=== PATIENT | female | born 1995 | race Caucasian/White ===

== ENCOUNTER 2017-05-30 22:32 | Emergency (ER) | payer MEDICAID ==
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
[2017-05-30 22:59] LABS: ABSOLUTE EOSINOPHILS # (AUTO) 0.1 10^3/uL (0.0-0.6); ABSOLUTE LYMPHOCYTES (AUTO) 1.6 10^3/uL (0.5-4.7); ABSOLUTE MONOCYTES (AUTO) 0.5 10^3/uL (0.1-1.4); ABSOLUTE NEUT (AUTO) 4.4 10^3/uL (1.7-8.2); BASOPHILS % (AUTO) 0.4 % (0-2); EOSINOPHILS % (AUTO) 1.2 % (0-6); HEMATOCRIT 37.6 % (36.0-47.0); HEMOGLOBIN 12.8 g/dL (12.0-15.5); HGB HCT DIFFERENCE 0.8; LYMPHOCYTES % (AUTO) 24.5 % (13-45); MEAN CORPUSCULAR HEMOGLOBIN 30.3 pg (27.0-33.4); MEAN CORPUSCULAR VOLUME 89 fl (80-97); MONOCYTES % (AUTO) 7.1 % (3-13); RED BLOOD COUNT 4.23 10^6/uL (3.72-5.28); RED CELL DISTRIBUTION WIDTH 13.6 % (11.5-14.0); SEGMENTED NEUTROPHILS % (AUTO) 66.8 % (42-78); WHITE BLOOD COUNT 6.7 10^3/uL (4.0-10.5)
[2017-05-30 23:16] LABS: ALANINE AMINOTRANSFERASE 18 U/L (5-35); ALBUMIN 4.2 g/dL (3.7-5.6); ALKALINE PHOSPHATASE 43 U/L (50-135); ANION GAP 10 (5-19); ASPARTATE AMINO TRANSFERASE 13 U/L (5-30); BILIRUBIN,DIRECT 0.3 mg/dL (0.0-0.4); BILIRUBIN,TOTAL 0.4 mg/dL (0.2-1.3); BLOOD UREA NITROGEN 14 mg/dL (7-20); CALCIUM 9.2 mg/dL (8.4-10.2); CARBON DIOXIDE 25 mmol/L (22-30); CHLORIDE 107 mmol/L (98-107); CREATININE RESULT 0.81 mg/dL (0.52-1.25); GLUCOSE 88 mg/dL (75-110); POTASSIUM 3.8 mmol/L (3.6-5.0); SODIUM 142.3 mmol/L (137-145); TOTAL PROTEIN 6.7 g/dL (6.3-8.2)
[2017-05-30 23:17] LABS: ALCOHOL < 10 mg/dL (NONE DETECTED)
--- NOTE | 2017-05-30 23:42 | EKG REPORT ---
SEVERITY:- NORMAL ECG - SINUS RHYTHM : Confirmed by: Tolu Fleming MD 30-May-2017 23:41:33
[2017-05-31 01:35] LABS: APPEARANCE,URINE SLIGHTLY-CLOUDY; BILIRUBIN,URINE NEGATIVE (NEGATIVE); GLUCOSE, URINE NEGATIVE (NEGATIVE); KETONES,URINE NEGATIVE (NEGATIVE); LEUKOCYTE ESTERASE,URINE TRACE (NEGATIVE); NITRITE,URINE NEGATIVE (NEGATIVE); PROTEIN,URINE NEGATIVE (NEGATIVE); URINE SPECIFIC GRAVITY 1.015; UROBILINOGEN,URINE NEGATIVE mg/dL (<2.0)
[2017-05-31 01:52] LABS: URINE BARBITURATES SCREEN NEGATIVE; URINE METHADONE SCREEN NEGATIVE; URINE OPIATES LOW NEGATIVE; URINE PHENCYCLIDINE SCREEN NEGATIVE
--- NOTE | 2017-05-31 09:12 | ER Document Report ---
Doctor's Note Notes: 05/31/17 11:08 Patient has been evaluated is stable at this time awaiting mental health involvement, I have reviewed labs vitals
[2017-05-31] MEDS ORDERED: BUPROPION HCL 100 MG PO SCH (10:00)
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
[2017-05-31 13:21] VITALS: BP 116/65
[2017-05-31] MEDS ORDERED: BUPROPION HCL 75 MG TABLET PO SCH (14:00)
== END 2017-05-31 13:21 | disposition home or self-care (01) ==
LOC: ER 22:32
DX: T50.902A Poisoning by unspecified drugs, medicaments and biological substances, intentional self-harm, initial encounter (principal); F32.9 Major depressive disorder, single episode, unspecified; Z79.899 Other long term (current) drug therapy; F17.200 Nicotine dependence, unspecified, uncomplicated
CPT/HCPCS: 36415; 80053; 80307; 81001; 84703; 85025; 93005; 93010; 99285

== ENCOUNTER 2017-09-14 14:28 | Emergency (ER) | payer MEDICAID ==
--- NOTE | 2017-09-14 15:59 | ER Document Report ---
HPI - HPI Patient complains to provider of: Right ear pain Onset: Other - Several days Onset/Duration: Constant, Persistent Pain Level: 4 Context: 21-year-old female complaining of right ear pain. She also hurts pre-and posterior auricular. No fever. No recent upper respiratory infection. She also says she cannot hear very well out of the right ear. Associated Symptoms: None Exacerbated by: Denies Relieved by: Denies Similar symptoms previously: No Recently seen / treated by doctor: No - ROS ROS below otherwise negative: Yes Systems Reviewed and Negative: Yes All other systems reviewed and negative Past Medical History - General Information source: Patient - Social History Smoking Status: Current Every Day Smoker Frequency of alcohol use: None Drug Abuse: None Lives with: Family Family History: Reviewed & Not Pertinent Psychiatric Medical History: Reports: Hx Depression Past Surgical History: Reports: Hx Gynecologic Surgery - ovarian cyst removal, Hx Tonsillectomy Vertical Provider Document - CONSTITUTIONAL Agree With Documented VS: Yes Exam Limitations: No Limitations - INFECTION CONTROL TRAVEL OUTSIDE OF THE [place] IN LAST 30 DAYS: No - HEENT HEENT: Normocephalic. negative: Conjuctival Injection, Pharyngeal Erythema Notes: tender with external ear and tragus movement, mild swelling to canal, wax in canal but the TM Is normal no pre or posterior auricular nodes, mastoid normal - RESPIRATORY Respiratory: Breath Sounds Normal, No Respiratory Distress O2 Sat by Pulse Oximetry: 94 - CARDIOVASCULAR Cardiovascular: Regular Rate, Regular Rhythm - MUSCULOSKELETAL/EXTREMETIES Musculoskeletal/Extremeties: MAEW, FROM - NEURO Level of Consciousness: Awake, Alert, Appropriate - DERM Integumentary: Warm, Dry, No Rash Course - Vital Signs Vital signs: Temp Pulse Resp BP Pulse Ox 98.3 F 94 H 14 136/63 H 94 09/14/17 14:39 09/14/17 14:39 09/14/17 14:39 09/14/17 14:39 09/14/17 14:39 Discharge - Discharge Clinical Impression: Right otitis externa Qualifiers: Otitis externa type: unspecified type Chronicity: acute Qualified Code(s): H60.501 - Unspecified acute noninfective otitis externa, right ear Condition: Good Instructions: Use of Ear Drops ([facility]), Otitis Externa ([facility]), Acetaminophen, Use of [id number] Ibuprofen ([facility]), Warm Packs ([facility]) Additional Instructions: warm compress to er if worse antibiotic ear drops over the counter tylenol and motrin for pain Please complete the patient satisfaction survey if you get one, and return it.. If you do not receive a survey, then you can go to the [facility] website, [email or web address] and place your comments about your very good care. Thank you very much. It was a pleasure being your medical provider today. Prescriptions: Gentamicin Sulfate 2 drop OD QID #1 bot Forms: Return to Work
[2017-09-14 16:43] VITALS: BP 115/66
== END 2017-09-14 16:47 | disposition home or self-care (01) ==
LOC: ER 14:28
DX: H60.501 Unspecified acute noninfective otitis externa, right ear (principal); F17.200 Nicotine dependence, unspecified, uncomplicated
CPT/HCPCS: 99282

== ENCOUNTER 2017-10-06 13:20 | Emergency (ER) | payer MEDICAID ==
[2017-10-06 13:27] VITALS: BP 113/68
--- NOTE | 2017-10-06 13:40 | ER Document Report ---
ED Medical Screen (RME) - General Chief Complaint: Abdominal Pain Stated Complaint: ABDOMINAL PAIN Time Seen by Provider: 10/06/17 13:36 Notes: 21-year-old female patient reports onset this morning of right lower quadrant abdominal pain. Pain is constant. LMP was in late July or early August. She has not done a test. She reports the pain is similar to a dermoid cyst she had removed at age [age] years old. I have greeted and performed a rapid initial assessment of this patient. A comprehensive ED assessment and evaluation of the patient, analysis of test results and completion of the medical decision making process will be conducted by additional ED providers. TRAVEL OUTSIDE OF THE [place] IN LAST 30 DAYS: No - Related Data Allergies/Adverse Reactions: No Known Allergies Allergy (Verified 10/06/17 13:36) Past Medical History - Social History Chew tobacco use (# tins/day): No Frequency of alcohol use: None Drug Abuse: None Renal/ Medical History: Denies: Hx Peritoneal Dialysis Psychiatric Medical History: Reports: Hx Depression Past Surgical History: Reports: Hx Gynecologic Surgery - ovarian cyst removal, Hx Tonsillectomy Physical Exam - Vital signs Vitals: Temp Pulse Resp BP Pulse Ox 98.5 F 78 16 113/68 98 10/06/17 13:26 10/06/17 13:26 10/06/17 13:26 10/06/17 13:26 10/06/17 13:26 Course - Vital Signs Vital signs: Temp Pulse Resp BP Pulse Ox 98.5 F 78 16 113/68 98 10/06/17 13:26 10/06/17 13:26 10/06/17 13:26 10/06/17 13:26 10/06/17 13:26
[2017-10-06 14:04] LABS: ABSOLUTE EOSINOPHILS # (AUTO) 0.2 10^3/uL (0.0-0.6); ABSOLUTE LYMPHOCYTES (AUTO) 2.3 10^3/uL (0.5-4.7); ABSOLUTE MONOCYTES (AUTO) 0.5 10^3/uL (0.1-1.4); ABSOLUTE NEUT (AUTO) 4.5 10^3/uL (1.7-8.2); BASOPHILS % (AUTO) 0.5 % (0-2); EOSINOPHILS % (AUTO) 2.6 % (0-6); LYMPHOCYTES % (AUTO) 30.4 % (13-45); MEAN CORPUSCULAR HEMOGLOBIN 29.6 pg (27.0-33.4); MEAN CORPUSCULAR HGB CONC 34.2 g/dL (32.0-36.0); MEAN CORPUSCULAR VOLUME 87 fl (80-97); MONOCYTES % (AUTO) 6.4 % (3-13); RED BLOOD COUNT 4.72 10^6/uL (3.72-5.28); RED CELL DISTRIBUTION WIDTH 13.7 % (11.5-14.0); SEGMENTED NEUTROPHILS % (AUTO) 60.1 % (42-78); WHITE BLOOD COUNT 7.5 10^3/uL (4.0-10.5)
[2017-10-06 14:10] LABS: APPEARANCE,URINE CLEAR; BILIRUBIN,URINE NEGATIVE (NEGATIVE); GLUCOSE, URINE NEGATIVE (NEGATIVE); KETONES,URINE NEGATIVE (NEGATIVE); LEUKOCYTE ESTERASE,URINE NEGATIVE (NEGATIVE); NITRITE,URINE NEGATIVE (NEGATIVE); PROTEIN,URINE NEGATIVE (NEGATIVE); URINE SPECIFIC GRAVITY 1.015; UROBILINOGEN,URINE NEGATIVE mg/dL (<2.0)
== END 2017-10-06 19:21 | disposition left against medical advice (07) ==
LOC: ER 13:20
DX: R10.31 Right lower quadrant pain (principal); Z87.42 Personal history of other diseases of the female genital tract
CPT/HCPCS: 36415; 81001; 84703; 85025; 99281

== ENCOUNTER 2018-02-17 12:43 | Emergency (ER) | payer MEDICAID ==
[2018-02-17 12:53] VITALS: BP 113/58
== END 2018-02-17 13:55 | disposition left against medical advice (07) ==
LOC: ER 12:43
DX: Z53.21 Procedure and treatment not carried out due to patient leaving prior to being seen by health care provider (principal)

== ENCOUNTER 2018-04-06 19:52 | Emergency (ER) | payer MEDICAID ==
[2018-04-06] MEDS ORDERED: ONDANSETRON 4 MG TAB.RAPDIS ONE (21:12)
[2018-04-06] MEDS ORDERED: ONDANSETRON 4 MG TAB.RAPDIS PO ONE (21:17)
[2018-04-06 21:30] LABS: ABSOLUTE EOSINOPHILS # (AUTO) 0.4 10^3/uL (0.0-0.6); ABSOLUTE LYMPHOCYTES (AUTO) 1.4 10^3/uL (0.5-4.7); ABSOLUTE MONOCYTES (AUTO) 0.6 10^3/uL (0.1-1.4); ABSOLUTE NEUT (AUTO) 9.7 10^3/uL (1.7-8.2); BASOPHILS % (AUTO) 0.3 % (0-2); HEMATOCRIT 41.6 % (36.0-47.0); HEMOGLOBIN 14.2 g/dL (12.0-15.5); LYMPHOCYTES % (AUTO) 11.9 % (13-45); MEAN CORPUSCULAR HEMOGLOBIN 29.6 pg (27.0-33.4); MEAN CORPUSCULAR HGB CONC 34.2 g/dL (32.0-36.0); MEAN CORPUSCULAR VOLUME 87 fl (80-97); MONOCYTES % (AUTO) 5.1 % (3-13); PLATELET COUNT 278 10^3/uL (150-450); RED BLOOD COUNT 4.81 10^6/uL (3.72-5.28); RED CELL DISTRIBUTION WIDTH 13.4 % (11.5-14.0); SEGMENTED NEUTROPHILS % (AUTO) 79.7 % (42-78); TOTAL CELLS COUNTED % (AUTO) 100 %; WHITE BLOOD COUNT 12.2 10^3/uL (4.0-10.5)
[2018-04-06 21:46] LABS: AMORPHOUS SEDIMENT,URINE TRACE /HPF; APPEARANCE,URINE TURBID; BILIRUBIN,URINE NEGATIVE (NEGATIVE); COLOR,URINE YELLOW; GLUCOSE, URINE NEGATIVE (NEGATIVE); KETONES,URINE TRACE mg/dL (NEGATIVE); LEUKOCYTE ESTERASE,URINE NEGATIVE (NEGATIVE); NITRITE,URINE NEGATIVE (NEGATIVE); PROTEIN,URINE 30 mg/dL (NEGATIVE); URINE SPECIFIC GRAVITY 1.034
[2018-04-06] MEDS ORDERED: FENTANYL CITRATE INJ/PF 100 MCG/2 ML AMPUL IV ONE (22:09)
[2018-04-06] MEDS ORDERED: NORMAL SALINE 1000 ML 1,000 ML IV ONE (22:09)
[2018-04-06] MEDS ORDERED: PROMETHAZINE HCL INJ 25 MG/1 ML VIAL IM ONE (22:09)
[2018-04-06 22:12] LABS: ALANINE AMINOTRANSFERASE 25 U/L (9-52); ALBUMIN 4.6 g/dL (3.5-5.0); ALKALINE PHOSPHATASE 61 U/L (38-126); ANION GAP 14 (5-19); ASPARTATE AMINO TRANSFERASE 21 U/L (14-36); BILIRUBIN,DIRECT 0.3 mg/dL (0.0-0.4); BILIRUBIN,TOTAL 0.3 mg/dL (0.2-1.3); BLOOD UREA NITROGEN 14 mg/dL (7-20); CARBON DIOXIDE 26 mmol/L (22-30); CHLORIDE 104 mmol/L (98-107); GLUCOSE 99 mg/dL (75-110); POTASSIUM 4.2 mmol/L (3.6-5.0); SODIUM 143.5 mmol/L (137-145); TOTAL PROTEIN 7.7 g/dL (6.3-8.2)
--- NOTE | 2018-04-06 22:15 | ER Document Report ---
ED General - General Chief Complaint: Abdominal Pain Stated Complaint: ABDOMINAL PAIN Time Seen by Provider: 04/06/18 22:00 Notes: Patient is a 22-year-old female who presents with complaints of abdominal pain and vomiting is been ongoing since yesterday. States the upper part of her abdomen hurts. She has had recurrent vomiting. No diarrhea. No blood in her stool. Is been unable to hold down food. No history of this in the past. The only previous abdominal history she has some endometriosis but says this feels totally different. No dysuria. No abnormal vaginal discharge or bleeding. No fevers. She says she does not know if she has pain with eating because she says she is unable to even attempt to hold anything down. No other complaints at this time. TRAVEL OUTSIDE OF THE [place] IN LAST 30 DAYS: No - Related Data Allergies/Adverse Reactions: No Known Allergies Allergy (Verified 02/17/18 12:46) Past Medical History - Social History Smoking Status: Current Every Day Smoker Frequency of alcohol use: None Drug Abuse: None Family History: Reviewed & Not Pertinent Renal/ Medical History: Denies: Hx Peritoneal Dialysis Psychiatric Medical History: Reports: Hx Depression Past Surgical History: Reports: Hx Gynecologic Surgery - ovarian cyst removal, Hx Tonsillectomy Review of Systems - Review of Systems Notes: My Normal Review Basic REVIEW OF SYSTEMS: CONSTITUTIONAL : Denies fever, chills, or sweats. Denies recent illness. CARDIOVASCULAR: Denies chest pain. RESPIRATORY: Denies cough, cold, or chest congestion. Denies shortness of breath, difficulty breathing, or wheezing. GASTROINTESTINAL: Abdominal pain and vomiting. GENITOURINARY: Denies difficulty urinating, painful urination, burning, frequency, or blood in urine. FEMALE GENITOURINARY: Denies vaginal bleeding, abnormal or irregular periods. LMP: MUSCULOSKELETAL: Denies neck or back pain or joint pain or swelling. SKIN: Denies rash or skin lesions. NEUROLOGICAL: Denies altered mental status or loss of consciousness. Denies headache. Denies weakness or paralysis or loss of use of either side. Denies problems with gait or speech. Denies sensory or motor loss. ALL OTHER SYSTEMS REVIEWED AND NEGATIVE. Physical Exam - Vital signs Vitals: Temp Pulse Resp BP Pulse Ox 98.8 F 94 20 124/76 97 04/06/18 20:02 04/06/18 20:02 04/06/18 20:02 04/06/18 20:02 04/06/18 20:02 - Notes Notes: General Appearance: Well nourished, alert, cooperative, no acute distress, moderate obvious discomfort. Vitals: reviewed, See vital signs table. Head: no swelling or tenderness to the head Eyes: PERRL, EOMI, Conjuctiva clear Mouth: No decreasd moisture Throat: No tonsillar inflammation, No airway obstruction, No lymphadenopathy Lungs: No wheezing, No rales, No rhonci, No accessory muscle use, good air exchange bilaterally. Heart: Normal rate, Regular rythm, No murmur, no rub Abdomen: Normal BS, soft, No rigidity, moderate diffuse abdominal tenderness that is worse over the epigastric region., No guarding, no rebound, no abdominal masses, no organomegaly Extremities: strength 5/5 in all extremities, good pulses in all extremities, no swelling or tenderness in the extremities, no edema. Skin: warm, dry, appropriate color, no rash Neuro: speech clear, oriented x 3, normal affect, responds appropriately to questions. Course - Re-evaluation Re-evalutation: 04/06/18 23:06 On reevaluation patient is sleeping. I wake up ask her how she is penis and she will wake her up she says that she is just doing "a little bit better". She still has pain palpation of her upper abdomen. Will obtain ultrasound to look at her gallbladder. She has not had any further vomiting. 04/07/18 04:26 Patient's pain and nausea continues to improve. Some mild generalized pain on exam however when you ask to locate her pain she was pointed to the epigastric region. I did obtain ultrasound of gallbladder just because she was continued complaint of pain. Ultrasound gallbladder did not show anything concerning. He did show very small polyp no that is does not require scheduled follow-up at this time according to the radiologist read. I did look at the images I do not see any polyp or mass in the neck of the gallbladder itself be concerning for biliary obstruction. Patient's laboratory evaluation is unremarkable. She is improving. I did discuss findings with the patient. Her mother was at bedside on my final evaluation the patient. Mother does mention that patient has a history of dermoid cyst on the left however patient does not have significant pain over the left lower quadrant left pelvic region. I informed her I think is unlikely that the cyst would be causing the pain. I do not suspect torsion as the patient does not have any pain over the portion of the abdomen where her ovaries Y. This summer the patient safe to be discharged home. Discharge her home with some nausea medications. I strongly encouraged her return to ER immediately if she has worsening recurrent pain, fevers, intractable vomiting, or feels unwell. Patient and family agree with plan and patient will be discharged home. Dictation of this chart was performed using voice recognition software; therefore, there may be some unintended grammatical errors. - Vital Signs Vital signs: Temp Pulse Resp BP Pulse Ox 98.6 F 75 16 123/65 98 04/07/18 01:20 04/07/18 01:20 04/07/18 01:20 04/07/18 01:20 04/07/18 01:20 - Laboratory Result Diagrams: 04/06/18 21:12 04/06/18 21:12 Laboratory results interpreted by me: 04/06/18 04/06/18 21:12 21:12 WBC 12.2 H Seg Neutrophils % 79.7 H Lymphocytes % 11.9 L Absolute Neutrophils 9.7 H Urine Protein 30 H Urine Ketones TRACE H Urine Urobilinogen 2.0 H Urine Ascorbic Acid 40 H Discharge - Discharge Clinical Impression: Abdominal pain Qualifiers: Abdominal location: upper abdomen, unspecified Qualified Code(s): R10.10 - Upper abdominal pain, unspecified Vomiting Qualifiers: Vomiting type: unspecified Vomiting Intractability: non-intractable Nausea presence: with nausea Qualified Code(s): R11.2 - Nausea with vomiting, unspecified Condition: Good Disposition: HOME, SELF-CARE Additional Instructions: PLease take the medications as prescribed. please take Tylenol for additional pain. Please avoid Motrin, aspirin, and Ibuprofen as they can irritate your stomach more. Please return to ER immediately if you have worsening abdominal pain, fevers, recurrent vomiting, or if you feel unwell. Please follow up with your doctor in 1-2 days. Please eat a very bland diet for the next 2-3 days. Prescriptions: Famotidine [Pepcid 40 mg Tablet] 40 mg PO DAILY #30 tablet Promethazine HCl [Phenergan 25 mg Tablet] 1 tab PO Q6H PRN #15 tablet PRN Reason: Forms: Return to Work
--- NOTE | 2018-04-07 00:12 | RADIOLOGY REPORT (SQ) ---
EXAM DESCRIPTION: US ABDOMEN DOPPLER LIMITED COMPLETED DATE/TME: 04/06/2018 23:06 CLINICAL HISTORY: abdominal pain. RUQ. COMPARISON: None. TECHNIQUE: Real-time sonographic images of the right upper abdomen were obtained using a curved multihertz transducer. FINDINGS: Pancreas: The pancreas is not well evaluated due to overlying structures and bowel gas. Vascular: The visualized portions of the aorta and IVC are unremarkable. Liver: The liver has normal contour and echogenicity. The left hepatic lobe is not well-visualized due to overlying structures. Hepatopedal flow in the portal vein identified with color and spectral Doppler imaging. The common bile duct measures 0.3 cm. Gallbladder: There is a 0.2 cm nonmobile nonshadowing structure along the gallbladder wall. No gallbladder wall thickening. Negative reported sonographic Paris sign. No pericholecystic fluid. Right Kidney: The right kidney measures 12.1 cm in length. No hydronephrosis, solid renal mass, or shadowing calculi. IMPRESSION: 1. There is a 0.2 cm nonmobile nonshadowing structure along the gallbladder wall. This may represent a polyp or adherent sludge ball. No follow-up required for this size of polyp.
[2018-04-07] MEDS ORDERED: PROMETHAZINE HCL 25 MG SUPP (4 SUPP/ER DISP) PR ONE (00:36)
[2018-04-07 01:28] VITALS: BP 123/65
== END 2018-04-07 01:19 | disposition home or self-care (01) ==
LOC: ER 19:52
DX: R10.10 Upper abdominal pain, unspecified (principal); R11.2 Nausea with vomiting, unspecified; F17.200 Nicotine dependence, unspecified, uncomplicated
CPT/HCPCS: 99284; 96372; 96361; 96374; 36415; 83690; 85025; 81025; 80053; 81001; 76705; 93976; S0119; J3010; J3490; J2550; J7030

== ENCOUNTER 2018-08-31 12:57 | Emergency (ER) | payer MEDICAID ==
--- NOTE | 2018-08-31 14:05 | RADIOLOGY REPORT (SQ) ---
EXAM DESCRIPTION: HAND RIGHT 3 VIEWS COMPLETED DATE/TIME: 08/31/2018 1:57 pm REASON FOR STUDY: pain to knuckle little finger , swollen red COMPARISON: None. EXAM PARAMETERS: NUMBER OF VIEWS: Three views. TECHNIQUE: AP, lateral and oblique radiographic images acquired of the right hand. LIMITATIONS: None. FINDINGS: MINERALIZATION: Normal. BONES: No acute fracture or dislocation. No worrisome bone lesions. JOINTS: No effusions. SOFT TISSUES: No soft tissue swelling. No foreign body. OTHER: No other significant finding. IMPRESSION: NEGATIVE STUDY OF THE RIGHT HAND. NO RADIOGRAPHIC EVIDENCE OF ACUTE INJURY. TECHNICAL DOCUMENTATION: JOB ID: [id number]- All Rights Reserved Reading location - IP/workstation name: [email or web address]
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
[2018-08-31] MEDS ORDERED: IBUPROFEN 600 MG TABLET PO ONE (14:29)
[2018-08-31] MEDS ORDERED: DIPH/PERTUSS(ACELL)/TETANUS VAC/PF 0.5 ML SYR (>=10YO) IM ONE (14:32)
[2018-08-31 15:46] VITALS: BP 113/68
== END 2018-08-31 15:29 | disposition home or self-care (01) ==
LOC: ER 12:57
PROC: 2W3JX1Z Immobilization of Right Finger using Splint (ICD-10-PCS; principal; 2018-08-31)
DX: S63.636A Sprain of interphalangeal joint of right little finger, initial encounter (principal); X50.1XXA Overexertion from prolonged static or awkward postures, initial encounter
CPT/HCPCS: 99284; 90471; 73130; 90715; 29130; J3490

== ENCOUNTER 2018-12-09 12:59 | Emergency (ER) | payer MEDICAID ==
[2018-12-09] MEDS ORDERED: KETOROLAC TROMETHAMINE INJ/PF 30 MG/1 ML SDV IV ONE (13:28)
[2018-12-09] MEDS ORDERED: ONDANSETRON HCL INJ/PF 4 MG/2 ML SDV IV ONE (13:28)
[2018-12-09] MEDS ORDERED: DICYCLOMINE HCL INJ 20 MG/2 ML AMPULE IM ONE (13:29)
--- NOTE | 2018-12-09 13:30 | ER Document Report ---
ED Medical Screen (RME) - General Chief Complaint: Nausea/Vomiting/Diarrhea Stated Complaint: ABDOMINAL PAIN Time Seen by Provider: 12/09/18 13:24 Notes: Chief complaint: Abdominal pain History of complain:( obtained from----patient) 23 years old female presents today with diffuse abdominal pain and vomited about 4-5 times clear fluid. And also had brown stool today. X1. No fever chills no dysuria frequency urgency. PHYSICAL EXAMINATION: GENERAL: Well-appearing, well-nourished and in mild acute distress. Obese HEAD: Atraumatic, normocephalic. EYES: Pupils equal round and reactive to light, extraocular movements intact, c onjunctiva are normal. ENT: Nares patent, oropharynx clear without exudates. Moist mucous membranes. NECK: Normal range of motion, supple without lymphadenopathy LUNGS: Breath sounds clear to auscultation bilaterally and equal. No wheezes rales or rhonchi. HEART: Regular rate and rhythm without murmurs ABDOMEN: Soft, diffusely tender, nondistended abdomen. No guarding, no rebound. No masses appreciated. Examination of genitals-deferred Dictation was performed using [employer] voice recognition software TRAVEL OUTSIDE OF THE [place] IN LAST 30 DAYS: No - Related Data Allergies/Adverse Reactions: No Known Allergies Allergy (Verified 12/09/18 12:59) Past Medical History Renal/ Medical History: Denies: Hx Peritoneal Dialysis Psychiatric Medical History: Reports: Hx Depression Past Surgical History: Reports: Hx Gynecologic Surgery - ovarian cyst removal, Hx Tonsillectomy Physical Exam - Vital signs Vitals: Temp Pulse Resp BP Pulse Ox 98.0 F 97 17 135/69 H 94 12/09/18 13:07 12/09/18 13:07 12/09/18 13:07 12/09/18 13:07 12/09/18 13:07 Course - Vital Signs Vital signs: Temp Pulse Resp BP Pulse Ox 98.0 F 97 17 135/69 H 94 12/09/18 13:07 12/09/18 13:07 12/09/18 13:07 12/09/18 13:07 12/09/18 13:07
[2018-12-09 14:39] LABS: APPEARANCE,URINE CLOUDY; BILIRUBIN,URINE NEGATIVE (NEGATIVE); COLOR,URINE YELLOW; GLUCOSE, URINE NEGATIVE (NEGATIVE); KETONES,URINE NEGATIVE (NEGATIVE); LEUKOCYTE ESTERASE,URINE NEGATIVE (NEGATIVE); NITRITE,URINE NEGATIVE (NEGATIVE); PROTEIN,URINE 30 mg/dL (NEGATIVE)
--- NOTE | 2018-12-09 14:55 | ER Document Report ---
ED GI/ - General Chief Complaint: Nausea/Vomiting/Diarrhea Stated Complaint: ABDOMINAL PAIN Time Seen by Provider: 12/09/18 13:24 Mode of Arrival: Ambulatory Information source: Patient Notes: Patient is an otherwise healthy 23-year-old female presenting to the emergency department with complaints of abdominal pain, nausea, vomiting and diarrhea. Patient reports her symptoms started 5 days ago. She reports over the last 5 days she has vomited approximately 6 times but has severe nausea constantly. Patient denies any dysuria but reports frequency. Patient is unsure if she was , last menstrual period was 4 months ago however she reports having irregular periods. Patient denies any fever or chills. Denies any abnormal discharge however she does state that the volume of discharge has increased. Denies any foul smell. Past surgical history includes left ovarian cyst re moval. TRAVEL OUTSIDE OF THE [place] IN LAST 30 DAYS: No - Related Data Allergies/Adverse Reactions: No Known Allergies Allergy (Verified 12/09/18 12:59) Past Medical History - General Information source: Patient - Social History Smoking Status: Current Every Day Smoker Chew tobacco use (# tins/day): No Frequency of alcohol use: None Drug Abuse: None Family History: Reviewed & Not Pertinent Patient has suicidal ideation: No Patient has homicidal ideation: No Renal/ Medical History: Denies: Hx Peritoneal Dialysis Psychiatric Medical History: Reports: Hx Depression Past Surgical History: Reports: Hx Gynecologic Surgery - ovarian cyst removal, Hx Tonsillectomy Review of Systems - Review of Systems Constitutional: No symptoms reported EENT: No symptoms reported Cardiovascular: No symptoms reported Respiratory: No symptoms reported Gastrointestinal: Diarrhea, Nausea, Vomiting Genitourinary: Frequency Female Genitourinary: Vaginal discharge Musculoskeletal: No symptoms reported Skin: No symptoms reported Hematologic/Lymphatic: No symptoms reported Neurological/Psychological: No symptoms reported Physical Exam - Vital signs Vitals: Temp Pulse Resp BP Pulse Ox 98.0 F 97 17 135/69 H 94 12/09/18 13:07 12/09/18 13:07 12/09/18 13:07 12/09/18 13:07 12/09/18 13:07 - Notes Notes: PHYSICAL EXAMINATION: GENERAL: Well-appearing, well-nourished and in no acute distress. HEAD: Atraumatic, normocephalic. EYES: Pupils equal round and reactive to light, extraocular movements intact, conjunctiva are normal. ENT: Nares patent, oropharynx clear without exudates. Moist mucous membranes. NECK: Normal range of motion, supple without lymphadenopathy LUNGS: Breath sounds clear to auscultation bilaterally and equal. No wheezes rales or rhonchi. HEART: Regular rate and rhythm without murmurs ABDOMEN: Soft,nondistended abdomen. Mild tenderness to palpation to lower abdomen. No guarding, no rebound. No masses appreciated. Female : No CVA tenderness. Musculoskeletal: Normal range of motion, no pitting or edema. No cyanosis. NEUROLOGICAL: Cranial nerves grossly intact. Normal speech, normal gait. Normal sensory, motor exams PSYCH: Normal mood, normal affect. SKIN: Warm, Dry, normal turgor, no rashes or lesions noted. Course - Re-evaluation Re-evalutation: CBC, CMP and urinalysis are unremarkable. HCG is negative. 4+ bacteria was noted on the wet mount. Patient will be treated for bacterial vaginosis. Nausea, vomiting and diarrhea likely secondary to viral gastroenteritis. Patient has not had any episodes of emesis while in the emergency department. Patient will be dispensed Zofran. Patient given strict ED return precautions which were discussed in her discharge instructions. - Vital Signs Vital signs: Temp Pulse Resp BP Pulse Ox 98.1 F 60 16 106/56 L 100 12/09/18 16:56 12/09/18 16:56 12/09/18 16:56 12/09/18 16:56 12/09/18 16:56 - Laboratory Result Diagrams: 12/09/18 15:50 12/09/18 15:50 Laboratory results interpreted by me: 12/09/18 12/09/18 14:14 15:50 Chloride 108 H Urine Protein 30 H Urine Urobilinogen 4.0 H Discharge - Discharge Clinical Impression: BV (bacterial vaginosis) Condition: Stable Disposition: HOME, SELF-CARE Additional Instructions: Vaginosis, Bacterial Your exam shows you have bacterial vaginosis. This condition is due to an overgrowth of bacteria in the vagina. Symptoms may include vaginal itching or pain, a smelly discharge, and sometimes burning with urination. Normally this is not transmitted by sexual contact. Vaginosis can be treated with oral or topical antibiotics. Metronidazole ( Flagyl) pills are usually effective. Topical vaginal creams include Cleocin and Metro-Gel. You should avoid sexual contact until your symptoms are all better. Call the doctor if you develop pelvic pain, fever, or problems with urination, or if you don't improve as expected. Your workup today shows that you went over growth of bacteria in your vagina called bacterial vaginosis. Will take Flagyl twice daily for 7 days. Please do not drink any alcohol while taking this medication as it will make you very ill. Your blood work today was normal. Your test was negative. Is imp ortant that you set up a follow-up with an [employer]. I have given you list. Prescriptions: Metronidazole [Flagyl 500 mg Tablet] 500 mg PO BID #14 tablet Ondansetron [Zofran Odt 4 mg Tablet] 1 - 2 tab PO Q4H PRN #15 tab.rapdis PRN Reason: For Nausea/Vomiting Forms: Return to Work
--- NOTE | 2018-12-09 15:26 | RADIOLOGY REPORT (SQ) ---
EXAM DESCRIPTION: ACUTE ABDOMEN SERIES COMPLETED DATE/TIME: 12/09/2018 3:03 pm REASON FOR STUDY: Acute abdominal pain COMPARISON: Abdominal ultrasound 04/06/2018 AP chest 07/02/2016 NUMBER OF VIEWS: Three views. TECHNIQUE: Frontal chest, supine abdomen and upright/decubitus abdomen radiographic images acquired. LIMITATIONS: None. FINDINGS: CHEST: Lungs clear of infiltrates. FREE AIR: None. No abnormal gas collections. BOWEL GAS PATTERN: Nonobstructive pattern. No dilated loops or air fluid levels. CALCIFICATIONS: No suspicious calcifications. HARDWARE: None in the abdomen. SOFT TISSUES: No gross mass or suggestion of organomegaly. BONES: No acute fracture. No worrisome bone lesions. OTHER: No other significant finding. IMPRESSION: NO RADIOGRAPHIC EVIDENCE FOR ACUTE ABDOMINAL DISEASE. TECHNICAL DOCUMENTATION: JOB ID: [id number]- All Rights Reserved Reading location - IP/workstation name: [email or web address]
[2018-12-09 15:47] LABS: T.VAGINALIS (WET MOUNT) NO TRICHOMONAS SEEN; YEAST (WET MOUNT) NO YEAST SEEN
[2018-12-09 15:48] LABS: BACTERIA (WET MOUNT) 4+ BACTERIA SEEN; EPITHELIALS (WET MOUNT) 4+ EPITHELIALS SEEN; RBCS (WET MOUNT) NO RBCS SEEN; WBCS (WET MOUNT) 2+ WBCS SEEN
[2018-12-09 15:59] LABS: ABSOLUTE EOSINOPHILS # (AUTO) 0.1 10^3/uL (0.0-0.6); ABSOLUTE LYMPHOCYTES (AUTO) 1.3 10^3/uL (0.5-4.7); ABSOLUTE MONOCYTES (AUTO) 0.5 10^3/uL (0.1-1.4); ABSOLUTE NEUT (AUTO) 3.2 10^3/uL (1.7-8.2); BASOPHILS % (AUTO) 0.3 % (0-2); EOSINOPHILS % (AUTO) 1.8 % (0-6); HEMATOCRIT 38.4 % (36.0-47.0); HEMOGLOBIN 13.3 g/dL (12.0-15.5); LYMPHOCYTES % (AUTO) 25.3 % (13-45); MEAN CORPUSCULAR HEMOGLOBIN 29.9 pg (27.0-33.4); MEAN CORPUSCULAR HGB CONC 34.7 g/dL (32.0-36.0); MEAN CORPUSCULAR VOLUME 86 fl (80-97); MONOCYTES % (AUTO) 9.1 % (3-13); PLATELET COUNT 226 10^3/uL (150-450); RED BLOOD COUNT 4.45 10^6/uL (3.72-5.28); RED CELL DISTRIBUTION WIDTH 13.6 % (11.5-14.0); SEGMENTED NEUTROPHILS % (AUTO) 63.5 % (42-78); TOTAL CELLS COUNTED % (AUTO) 100 %; WHITE BLOOD COUNT 5.1 10^3/uL (4.0-10.5)
[2018-12-09 16:24] LABS: ALANINE AMINOTRANSFERASE 20 U/L (9-52); ALBUMIN 4.3 g/dL (3.5-5.0); ALKALINE PHOSPHATASE 52 U/L (38-126); ANION GAP 8 (5-19); ASPARTATE AMINO TRANSFERASE 25 U/L (14-36); BILIRUBIN,DIRECT 0.3 mg/dL (0.0-0.4); BILIRUBIN,TOTAL 0.5 mg/dL (0.2-1.3); BLOOD UREA NITROGEN 12 mg/dL (7-20); CARBON DIOXIDE 26 mmol/L (22-30); CHLORIDE 108 mmol/L (98-107); GLUCOSE 83 mg/dL (75-110); LIPASE 37.4 U/L (23-300); POTASSIUM 4.2 mmol/L (3.6-5.0); SODIUM 142.4 mmol/L (137-145); TOTAL PROTEIN 6.7 g/dL (6.3-8.2)
[2018-12-09] MEDS ORDERED: METRONIDAZOLE 500 MG TABLET PO ONE (16:46)
[2018-12-09 16:58] VITALS: BP 106/56
[2018-12-09 17:18] LABS: CHLAM PCR NOT DETECTED (NOT DETECT); GON PCR NOT DETECTED (NOT DETECT)
== END 2018-12-09 17:00 | disposition home or self-care (01) ==
LOC: ER 12:59
DX: N76.0 Acute vaginitis (principal); B96.89 Other specified bacterial agents as the cause of diseases classified elsewhere; R11.2 Nausea with vomiting, unspecified; R19.7 Diarrhea, unspecified; R10.9 Unspecified abdominal pain; N92.6 Irregular menstruation, unspecified; R35.0 Frequency of micturition; F17.200 Nicotine dependence, unspecified, uncomplicated; Z87.42 Personal history of other diseases of the female genital tract
CPT/HCPCS: 99284; 96372; 96374; 96375; 36415; 87210; 84702; 83690; 85025; 81025; 80053; 81001; 87491; 87591; 74022; J0500; J1885; J2405; J3490

== ENCOUNTER 2019-02-07 17:44 | Emergency (ER) | payer MEDICAID ==
[2019-02-07] MEDS ORDERED: ACETAMINOPHEN 325 MG TABLET PO ONE (18:51)
--- NOTE | 2019-02-07 18:53 | ER Document Report ---
ED Medical Screen (RME) - General Chief Complaint: Vag Bleeding, +preg <12wks Stated Complaint: ABDOMINAL PAIN, VAGINAL BLEEDING Time Seen by Provider: 02/07/19 18:45 Mode of Arrival: Ambulatory Information source: Patient TRAVEL OUTSIDE OF THE [place] IN LAST 30 DAYS: No - HPI Patient complains to provider of: preg, pain, bleeding Notes: 02/07/19 18:52 Patient is here with complaints of lower pelvic pain, bleeding and cramping. The patient is 11 weeks . She states that she has had an ultrasound confirming intrauterine . States that she started having some lower abdominal cramping and vaginal bleeding/spotting around 2 AM. She still having some mild pain. She also complains of some mild dysuria. She denies any nausea, vomiting, diarrhea. No fever. No other complaints. Exam Patient is nontoxic-appearing, no distress, lungs clear, no CVA tenderness. Mild left lower abdominal/pelvic tenderness to palpation. Plan CBC, CMP, quantitative hCG, blood type, urinalysis, pelvic ultrasound An initial examination was made on the patient as part of the triage process, and it was determined a more comprehensive evaluation was necessary. Initial labs were ordered and patient was transferred to another provider in the ED who assumed care and finished evaluation and plan. - Related Data Allergies/Adverse Reactions: No Known Allergies Allergy (Verified 02/07/19 17:46) Past Medical History - Social History Frequency of alcohol use: None Drug Abuse: None Renal/ Medical History: Denies: Hx Peritoneal Dialysis Psychiatric Medical History: Reports: Hx Depression Past Surgical History: Reports: Hx Gynecologic Surgery - ovarian cyst removal, Hx Tonsillectomy Physical Exam - Vital signs Vitals: Temp Pulse Resp BP Pulse Ox 98.6 F 77 16 125/53 L 99 02/07/19 18:00 02/07/19 18:00 02/07/19 18:00 02/07/19 18:00 02/07/19 18:00 Course - Vital Signs Vital signs: Temp Pulse Resp BP Pulse Ox 98.6 F 77 16 125/53 L 99 02/07/19 18:00 02/07/19 18:00 02/07/19 18:00 02/07/19 18:00 02/07/19 18:00
[2019-02-07 19:02] LABS: APPEARANCE,URINE CLEAR; BILIRUBIN,URINE NEGATIVE (NEGATIVE); COLOR,URINE YELLOW; GLUCOSE, URINE NEGATIVE (NEGATIVE); KETONES,URINE NEGATIVE (NEGATIVE); LEUKOCYTE ESTERASE,URINE NEGATIVE (NEGATIVE); NITRITE,URINE NEGATIVE (NEGATIVE); PROTEIN,URINE NEGATIVE (NEGATIVE); URINE SPECIFIC GRAVITY 1.021; UROBILINOGEN,URINE NEGATIVE mg/dL (<2.0)
[2019-02-07 19:12] LABS: ABSOLUTE EOSINOPHILS # (AUTO) 0.1 10^3/uL (0.0-0.6); ABSOLUTE LYMPHOCYTES (AUTO) 1.9 10^3/uL (0.5-4.7); ABSOLUTE MONOCYTES (AUTO) 0.4 10^3/uL (0.1-1.4); ABSOLUTE NEUT (AUTO) 6.3 10^3/uL (1.7-8.2); BASOPHILS % (AUTO) 0.3 % (0-2); EOSINOPHILS % (AUTO) 1.5 % (0-6); HEMATOCRIT 36.6 % (36.0-47.0); HEMOGLOBIN 12.8 g/dL (12.0-15.5); LYMPHOCYTES % (AUTO) 21.5 % (13-45); MEAN CORPUSCULAR HEMOGLOBIN 30.3 pg (27.0-33.4); MEAN CORPUSCULAR HGB CONC 35.1 g/dL (32.0-36.0); MEAN CORPUSCULAR VOLUME 87 fl (80-97); MONOCYTES % (AUTO) 4.8 % (3-13); PLATELET COUNT 260 10^3/uL (150-450); RED BLOOD COUNT 4.23 10^6/uL (3.72-5.28); RED CELL DISTRIBUTION WIDTH 13.7 % (11.5-14.0); SEGMENTED NEUTROPHILS % (AUTO) 71.9 % (42-78); TOTAL CELLS COUNTED % (AUTO) 100 %; WHITE BLOOD COUNT 8.8 10^3/uL (4.0-10.5)
[2019-02-07 19:34] LABS: ALANINE AMINOTRANSFERASE 21 U/L (9-52); ALBUMIN 3.9 g/dL (3.5-5.0); ALKALINE PHOSPHATASE 37 U/L (38-126); ANION GAP 8 (5-19); ASPARTATE AMINO TRANSFERASE 18 U/L (14-36); BILIRUBIN,DIRECT 0.3 mg/dL (0.0-0.4); BILIRUBIN,TOTAL 0.3 mg/dL (0.2-1.3); BLOOD UREA NITROGEN 13 mg/dL (7-20); CALCIUM 9.8 mg/dL (8.4-10.2); CARBON DIOXIDE 20 mmol/L (22-30); CHLORIDE 110 mmol/L (98-107); GLUCOSE 105 mg/dL (75-110); LIPASE 43.2 U/L (23-300); POTASSIUM 3.7 mmol/L (3.6-5.0); SODIUM 138.2 mmol/L (137-145); TOTAL PROTEIN 6.5 g/dL (6.3-8.2)
--- NOTE | 2019-02-07 20:40 | ER Document Report ---
ED General - General Chief Complaint: Vag Bleeding, +preg <12wks Stated Complaint: ABDOMINAL PAIN, VAGINAL BLEEDING Time Seen by Provider: 02/07/19 18:45 Mode of Arrival: Ambulatory TRAVEL OUTSIDE OF THE [place] IN LAST 30 DAYS: No - HPI Patient complains to provider of: Abdominal cramping, vaginal bleeding, 11-week Onset: Yesterday Onset/Duration: Gradual, Persistent Quality of pain: Cramping Severity: Severe Pain Level: 4 Associated symptoms: None Exacerbated by: Denies Relieved by: Denies Similar symptoms previously: No Recently seen / treated by doctor: No Notes: 23-year-old female coming in today with abdominal cramping and vaginal bleeding. She is 11 weeks . Spotting less than a period. - Related Data Allergies/Adverse Reactions: No Known Allergies Allergy (Verified 02/07/19 17:46) Past Medical History - General Information source: Patient - Social History Smoking Status: Current Every Day Smoker Frequency of alcohol use: None Drug Abuse: None Family History: Reviewed & Not Pertinent Patient has suicidal ideation: No Patient has homicidal ideation: No Renal/ Medical History: Denies: Hx Peritoneal Dialysis Psychiatric Medical History: Reports: Hx Depression Past Surgical History: Reports: Hx Gynecologic Surgery - ovarian cyst removal, Hx Tonsillectomy Review of Systems - Review of Systems Notes: Constitutional: No fevers. No chills. EENT: No eye redness. No eye pain. No ear pain. No sore throat. Cardiovascular: No chest pain. No palpitations. Respiratory: No cough. No shortness of breath. No respiratory distress. Gastrointestinal: No abdominal pain. No nausea, vomiting, or diarrhea. Genitourinary: Positive pelvic cramping, vaginal spotting Musculoskeletal: Atraumatic. No swelling. No deformities. Skin: No rash or lesions. Lymphatic: No swollen lymph nodes. Neurologic: No headache. No syncope. Psychiatric: No suicidal or homicidal ideation. Physical Exam - Vital signs Vitals: Temp Pulse Resp BP Pulse Ox 98.6 F 77 16 125/53 L 99 02/07/19 18:00 02/07/19 18:00 02/07/19 18:00 02/07/19 18:00 02/07/19 18:00 - Notes Notes: General: Well-developed, well-nourished. In no acute distress. Non-toxic appearing. Cardiac: Well-perfused. Regular rate and rhythm. No murmurs, rubs, or gallops. Pulmonary: No respiratory distress. No cyanosis. Bilateral lung fiels are clear to auscultation. Abdominal: Non-distended. Non-rigid. Bowels sounds are present in all four quadrants. No guarding or rebound. HEENT: Head is atraumatic. Conjunctivae not reddened. No tearing. PERRL. EOMI. O rbits atraumatic. No periorbital swelling or erythema. Oropharynx is without erythema, swelling, or exudates. Neck: Supple. No adenopathy. No meningismus. Dermatologic: Warm with good turgor. No rash. Atraumatic. Chest: Atraumatic. No chest wall tenderness to palpation. Musculoskeletal: Moves all extremities well. No range of motion deficits. no muscular or joint tenderness. No paraspinal muscle tenderness. no midline spinal tenderness or step-off. Genitourinary: Examination deferred Neurologic: No gross neurologic deficits. Psychiatric: Normal mood. Course - Re-evaluation Re-evalutation: 02/07/19 20:39 Patient is positive blood type. RhoGam not indicated. Lab work is reassuring. No abnormalities. No sign of infection. Ultrasound results pending 02/07/19 21:26 Labs are back. They are reassuring. Ultrasound shows a living IUP. Will discharge home - Vital Signs Vital signs: Temp Pulse Resp BP Pulse Ox 98.6 F 77 16 125/53 L 99 02/07/19 18:00 02/07/19 18:00 02/07/19 18:00 02/07/19 18:00 02/07/19 18:00 - Laboratory Result Diagrams: 02/07/19 18:58 02/07/19 18:58 Laboratory results interpreted by me: 02/07/19 18:58 Chloride 110 H Carbon Dioxide 20 L Creatinine 0.42 L Alkaline Phosphatase 37 L Beta HCG, Quant 077690.00 H Discharge - Discharge Clinical Impression: Threatened Condition: Good Disposition: HOME, SELF-CARE Instructions: Threatened Miscarriage ([facility]) Additional Instructions: Drink lots of water which means 8 glasses a day at minimum. No sexual contact or any vaginal stimulation until you see an OB doctor who approved free to start that again. Follow-up with obstetrics as needed. Referrals: ANSHUL DIAL MD [ACTIVE STAFF] - Follow up as needed
--- NOTE | 2019-02-07 21:08 | RADIOLOGY REPORT (SQ) ---
EXAM DESCRIPTION: US LESS THAN 14 WEEKS COMPLETED DATE/TME: 02/07/2019 18:46 CLINICAL HISTORY: 23 years ,Female ,preg, pain, bleeding COMPARISON: None. TECHNIQUE: Transabdominal and transvaginal duplex imaging performed to evaluate the pelvis. FINDINGS: Uterus measures 10.2 x 5.3 cm. There is an intrauterine gestational sac measuring 6.2 cm. There is a small amount of subchorionic hemorrhage. [place]-rump length 3.6 cm. heart rate 150 bpm. Cervix is closed and measures 2.2 cm. Left ovary measures 2.3 x 1.9 cm with normal flow. Right ovary measures 2.6 x 2.3 cm with normal flow. No free fluid. IMPRESSION: Living IUP corresponding to nine weeks.
[2019-02-07 21:52] VITALS: BP 125/72
== END 2019-02-07 21:54 | disposition home or self-care (01) ==
LOC: ER 17:44
DX: O20.0 Threatened abortion (principal); R10.2 Pelvic and perineal pain; Z3A.11 11 weeks gestation of pregnancy
CPT/HCPCS: 99284; 86900; 86901; 36415; 84702; 83690; 85025; 80053; 81001; 76801; 93976; J3490

== ENCOUNTER 2019-05-23 11:50 | Outpatient (CLI) | payer MEDICAID ==
[2019-05-23 12:41] LABS: BACTERIA (WET MOUNT) 4+ BACTERIA SEEN; EPITHELIALS (WET MOUNT) 3+ EPITHELIALS SEEN; RBCS (WET MOUNT) FEW RBCS SEEN; T.VAGINALIS (WET MOUNT) NO TRICHOMONAS SEEN; WBCS (WET MOUNT) 3+ WBCS SEEN; YEAST (WET MOUNT) NO YEAST SEEN
[2019-05-23 12:49] LABS: APPEARANCE,URINE SLIGHTLY-CLOUDY; BILIRUBIN,URINE NEGATIVE (NEGATIVE); GLUCOSE, URINE NEGATIVE (NEGATIVE); KETONES,URINE TRACE mg/dL (NEGATIVE); LEUKOCYTE ESTERASE,URINE TRACE (NEGATIVE); NITRITE,URINE NEGATIVE (NEGATIVE); PROTEIN,URINE 30 mg/dL (NEGATIVE); URINE SPECIFIC GRAVITY 1.031
[2019-05-23 12:50] LABS: COLOR,URINE DARK YELLOW
[2019-05-23 13:16] LABS: URINE AMPHETAMINES SCREEN NEGATIVE; URINE BARBITURATES SCREEN NEGATIVE; URINE BENZODIAZEPINES SCREEN NEGATIVE; URINE COCAINE SCREEN NEGATIVE; URINE MARIJUANA (THC) SCREEN NEGATIVE; URINE METHADONE SCREEN NEGATIVE; URINE PHENCYCLIDINE SCREEN NEGATIVE
[2019-05-23 14:11] LABS: CHLAM PCR NOT DETECTED (NOT DETECT)
== END 2019-05-23 14:25 | disposition home or self-care (01) ==
LOC: LC 11:50
PROVIDERS: ATTEND Obstetrics & Gynecology
PROC: 4A1HXCZ Monitoring of Products of Conception, Cardiac Rate, External Approach (ICD-10-PCS; principal; 2019-05-23)
DX: O26.892 Other specified pregnancy related conditions, second trimester (principal); E86.0 Dehydration; Z3A.26 26 weeks gestation of pregnancy
CPT/HCPCS: 59025; 80307; 81001; 87210; 87491; 87591

== ENCOUNTER 2019-07-18 18:19 | Outpatient (CLI) | payer MEDICAID ==
[2019-07-18 19:22] LABS: APPEARANCE,URINE CLEAR; BILIRUBIN,URINE SMALL (NEGATIVE); GLUCOSE, URINE NEGATIVE (NEGATIVE); KETONES,URINE 80 mg/dL (NEGATIVE); LEUKOCYTE ESTERASE,URINE NEGATIVE (NEGATIVE); NITRITE,URINE NEGATIVE (NEGATIVE); PROTEIN,URINE 30 mg/dL (NEGATIVE); URINE SPECIFIC GRAVITY 1.034
[2019-07-18 19:26] LABS: COLOR,URINE YELLOW
[2019-07-18 19:37] LABS: URINE AMPHETAMINES SCREEN NEGATIVE; URINE BARBITURATES SCREEN NEGATIVE; URINE BENZODIAZEPINES SCREEN NEGATIVE; URINE COCAINE SCREEN NEGATIVE; URINE MARIJUANA (THC) SCREEN NEGATIVE; URINE METHADONE SCREEN NEGATIVE; URINE PHENCYCLIDINE SCREEN NEGATIVE
[2019-07-18 21:35] LABS: BACTERIA (WET MOUNT) 4+ BACTERIA SEEN; EPITHELIALS (WET MOUNT) 4+ EPITHELIALS SEEN; RBCS (WET MOUNT) NO RBCS SEEN; T.VAGINALIS (WET MOUNT) NO TRICHOMONAS SEEN; WBCS (WET MOUNT) 3+ WBCS SEEN; YEAST (WET MOUNT) BUDDING YEAST SEEN
[2019-07-18] MEDS ORDERED: TERBUTALINE SULFATE INJ/PF 1 MG/1 ML SDV ONE (21:38)
[2019-07-18] MEDS ORDERED: RINGERS SOLUTION,LACTATED 1,000 ML IV ONE (21:39)
[2019-07-18] MEDS ORDERED: TERBUTALINE SULFATE INJ/PF 1 MG/1 ML SDV SUBCUT ONE (21:39)
--- NOTE | 2019-07-18 22:28 | Non Stress Test Report ---
Non Stress Test Datetime Report Generated by CPN: 07/18/2019 22:28 DEMOGRAPHIC EGA NST: 34.1 INDICATION Indication for Study: Ordered by Provider; Other Indication for Study (NST) Other: Labor check MONITORING Monitor Explained: Monitor Explained; Test Explained; Patient Verbalized Understanding Time on Monitor: 07/18/2019 18:33 Time off Monitor: 07/18/2019 22:08 NST Duration: 215 NST INTERVENTIONS NST Interventions: IV Fluids Physician Notified NST: Dr. Tesfaye BABY A: [id number] BABY A Contraction Frequency : Irreg FHR Baseline : 140 Accelerations : 15X15 Decelerations : None Variability : Moderate 6-25bpm NST Review: Meets Criteria for Reactive NST NST Review and Verified By : Ty Jc, RN NST Results: Reactive NST REPORT Report Trigger: Send Report
[2019-07-18 22:54] LABS: CHLAM PCR NOT DETECTED (NOT DETECT)
== END 2019-07-18 22:29 | disposition home or self-care (01) ==
LOC: LC 18:19
PROVIDERS: ATTEND Obstetrics & Gynecology
PROC: 4A1HXCZ Monitoring of Products of Conception, Cardiac Rate, External Approach (ICD-10-PCS; principal; 2019-07-18)
DX: O98.813 Other maternal infectious and parasitic diseases complicating pregnancy, third trimester (principal); B37.3 Candidiasis of vulva and vagina; O26.893 Other specified pregnancy related conditions, third trimester; E86.0 Dehydration; Z3A.34 34 weeks gestation of pregnancy
CPT/HCPCS: 59025; 87210; 81001; 80307; 87491; 87591; J3105

== ENCOUNTER 2019-08-17 00:12 | Outpatient (CLI) | payer MEDICAID ==
[2019-08-17 01:17] LABS: APPEARANCE,URINE SLIGHTLY-CLOUDY; BILIRUBIN,URINE NEGATIVE (NEGATIVE); COLOR,URINE YELLOW; GLUCOSE, URINE NEGATIVE (NEGATIVE); KETONES,URINE NEGATIVE (NEGATIVE); LEUKOCYTE ESTERASE,URINE NEGATIVE (NEGATIVE); NITRITE,URINE NEGATIVE (NEGATIVE); PROTEIN,URINE 30 mg/dL (NEGATIVE); UROBILINOGEN,URINE NEGATIVE mg/dL (<2.0)
--- NOTE | 2019-08-17 01:36 | Non Stress Test Report ---
Non Stress Test Datetime Report Generated by CPN: 08/17/2019 01:36 DEMOGRAPHIC EGA NST: 38.3 INDICATION Indication for Study: Ordered by Provider Indication for Study (NST) Other: LC MONITORING Monitor Explained: Monitor Explained; Test Explained; Patient Verbalized Understanding Time on Monitor: 08/17/2019 00:27 Time off Monitor: 08/17/2019 00:53 NST Duration: 26 NST INTERVENTIONS NST Interventions: Reposition Patient Physician Notified NST: Dr. Sawyer BABY A: [id number] BABY A Movement : Present Contraction Frequency : none FHR Baseline : 135 Accelerations : 15X15 Decelerations : None Variability : Moderate 6-25bpm NST Review: Meets Criteria for Reactive NST NST Review and Verified By : ROMIE Davis NST Results: Reactive NST REPORT Report Trigger: Send Report
[2019-08-17 01:40] LABS: URINE AMPHETAMINES SCREEN NEGATIVE; URINE BARBITURATES SCREEN NEGATIVE; URINE BENZODIAZEPINES SCREEN NEGATIVE; URINE COCAINE SCREEN NEGATIVE; URINE MARIJUANA (THC) SCREEN NEGATIVE; URINE METHADONE SCREEN NEGATIVE; URINE PHENCYCLIDINE SCREEN NEGATIVE
== END 2019-08-17 01:36 | disposition home or self-care (01) ==
LOC: LC 00:12
PROVIDERS: ATTEND Obstetrics & Gynecology
PROC: 4A1HXCZ Monitoring of Products of Conception, Cardiac Rate, External Approach (ICD-10-PCS; principal; 2019-08-17)
DX: O99.333 Smoking (tobacco) complicating pregnancy, third trimester (principal); F17.210 Nicotine dependence, cigarettes, uncomplicated; Z3A.38 38 weeks gestation of pregnancy
CPT/HCPCS: 59025; 80307; 81005

== ENCOUNTER 2019-08-29 18:22 | Inpatient (IN) | payer MEDICAID ==
[2019-08-29 19:17] LABS: ABSOLUTE LYMPHOCYTES (AUTO) 1.6 10^3/uL (0.5-4.7); ABSOLUTE MONOCYTES (AUTO) 0.5 10^3/uL (0.1-1.4); ABSOLUTE NEUT (AUTO) 9.4 10^3/uL (1.7-8.2); BASOPHILS % (AUTO) 0.3 % (0-2); EOSINOPHILS % (AUTO) 0.3 % (0-6); HEMATOCRIT 31.5 % (36.0-47.0); HEMOGLOBIN 10.8 g/dL (12.0-15.5); LYMPHOCYTES % (AUTO) 13.5 % (13-45); MEAN CORPUSCULAR HGB CONC 34.3 g/dL (32.0-36.0); MEAN CORPUSCULAR VOLUME 85 fl (80-97); MONOCYTES % (AUTO) 4.6 % (3-13); PLATELET COUNT 222 10^3/uL (150-450); RED BLOOD COUNT 3.73 10^6/uL (3.72-5.28); RED CELL DISTRIBUTION WIDTH 13.7 % (11.5-14.0); SEGMENTED NEUTROPHILS % (AUTO) 81.3 % (42-78); TOTAL CELLS COUNTED % (AUTO) 100 %; WHITE BLOOD COUNT 11.5 10^3/uL (4.0-10.5)
[2019-08-29 19:25] LABS: URINE AMPHETAMINES SCREEN NEGATIVE; URINE BARBITURATES SCREEN NEGATIVE; URINE BENZODIAZEPINES SCREEN NEGATIVE; URINE COCAINE SCREEN NEGATIVE; URINE MARIJUANA (THC) SCREEN NEGATIVE; URINE METHADONE SCREEN NEGATIVE; URINE PHENCYCLIDINE SCREEN NEGATIVE
[2019-08-29] MEDS ORDERED: DINOPROSTONE 10 MG VAGINAL INSERT.SR ONE (20:05)
[2019-08-29] MEDS ORDERED: ZOLPIDEM TARTRATE 5 MG TABLET PO PRN (20:08)
[2019-08-29] MEDS ORDERED: RINGERS SOLUTION,LACTATED 1,000 ML IV PRN (20:08)
[2019-08-29] MEDS ORDERED: DINOPROSTONE 10 MG VAGINAL INSERT.SR PV ONE (20:08)
[2019-08-29] MEDS ORDERED: OXYTOCIN/NORMAL SALINE 20 UNIT/1,000 ML RTUINJ IV PRN (20:08)
[2019-08-29] MEDS ORDERED: ACETAMINOPHEN 325 MG TABLET PO PRN (20:08)
[2019-08-29] MEDS ORDERED: MAG HYDROX/AL HYDROX/SIMETH SUSP 30 ML UDCUP PO PRN (20:08)
[2019-08-29] MEDS ORDERED: RINGERS SOLUTION,LACTATED 300 ML IV ONE (20:08)
[2019-08-29 21:16] LABS: APPEARANCE,URINE TURBID; BILIRUBIN,URINE NEGATIVE (NEGATIVE); COLOR,URINE YELLOW; GLUCOSE, URINE NEGATIVE (NEGATIVE); KETONES,URINE NEGATIVE (NEGATIVE); LEUKOCYTE ESTERASE,URINE NEGATIVE (NEGATIVE); NITRITE,URINE NEGATIVE (NEGATIVE); PROTEIN,URINE 30 mg/dL (NEGATIVE); URINE SPECIFIC GRAVITY 1.027; UROBILINOGEN,URINE NEGATIVE mg/dL (<2.0)
--- NOTE | 2019-08-29 21:34 | Admission Physical ---
Datetime Report Generated by CPN: 08/29/2019 21:34 CURRENT ADMISSION Chief Complaint: Scheduled Induction of Labor Indication for Induction: Post Dates; Other Indication for Induction- Other: AC lag Admit Impression : Term, Intrauterine Admit Plan: Admit to Unit; Initiate Labor Induction Protocol ALLERGIES Medication Allergies: No Medication Allergies: No Known Allergies (08/17/2019) Latex: No Latex Allergies Food Allergies: no Environmental Allergies: no OBSTETRICAL HISTORY EDC: 08/28/2019 00:00 : 1 Para: 0 Term: 0 : 0 SAB: 0 IAB: 0 Ectopic: 0 Livin Cesareans: 0 VBACs: 0 Multiple Births: 0 Gestational Diabetes: No Rh Sensitization: No Incompetent Cervix: No TRUE: No Infertility: No ART Treatment: No Uterine Anomaly: No IUGR: No Hx Previous C/S: No Macrosomia: No Hx Loss/Stillborn: No PIH: No Hx : No Placenta Previa/Abruption: No Depression/PP Depression: No Post Hemorrhage: No Current Procedures: Ultrasound Obstetrical History Comments: G1 Current- limited PNC, smoker SEE RECORDS Alcohol: No Marijuana : No Cocaine: No Other Illicit Drugs: No Cigarettes: Current Some Day Smoker. 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 Surgery: Yes Heart Disease: No Hosp/Surgery: Yes Autoimmune Disorder: No Anesthetic Complications: No Kidney Disease: No Abnormal Pap Smear: No Neuro/Epilepsy: No Psychiatric Disorders: No Other Medical Diseases: No Hepatitis/Liver Disease: No Significant Family History: No Varicosities/Phlebitis: No Trauma/Violence : Yes Thyroid Dysfunction: No Medical History Comments: cysts controlled with birthcontrol pills prior to /has had cysts and tonsils and wisdom teeth INFECTIOUS HISTORY Gonorrhea: No Genital Herpes: No Chlamydia: No Tuberculosis: No Syphilis: No Hepatitis: No HIV/AIDS Exposure: No Rash or Viral Illness: No HPV: No PHYSICAL EXAM General: Normal HEENT: Normal Neurologic: Normal Thyroid: Normal Heart: Normal Lungs: Normal Breast: Normal Back: Normal Abdomen: Normal Genitourinary Exam: Normal Extremities: Normal DTRs: Normal Pelvic Type: Adequate Vital Signs: Reviewed VAGINAL EXAM Dilatation: 1 Effacement: thick Station: -3 Contraction Comments: irregular MEMBRANES Membranes: Intact FETUS A EGA: 40.1 Monitoring: External US FHR- Baseline: 120s Variability: Moderate 6-25bpm Accelerations: 15X15 Decelerations: None FHR Category: Category I Admit Comment: G1 presents to L_D for an IOL secondary to small abdominal circumference. She reports good movement. She is GBS Pos. IOL w/Cervidil. Cervix is closed. PLANS FOR LABOR AND DELIVERY Labor and Delivery: None Pain Management: Epidural Feeding Preference: Breast Benefit of Breast Feed Discussed: Yes Circumcision: N/A INFORMED CONSENT Signature: with User ID: [email or web address]
[2019-08-30] MEDS ORDERED: OXYTOCIN/NORMAL SALINE 20 UNIT/1,000 ML RTUINJ ONE (07:19)
[2019-08-30] MEDS ORDERED: MISOPROSTOL 0.2 MG TABLET ONE (07:19)
[2019-08-30] MEDS ORDERED: OXYTOCIN 10 UNIT/ML VIAL ONE (07:19)
[2019-08-30] MEDS ORDERED: LIDOCAINE 1% INJ-PF (10 MG/ML) 30 ML SDV ONE (07:19)
[2019-08-30] MEDS ORDERED: OXYTOCIN/NORMAL SALINE 20 UNIT/1,000 ML RTUINJ IV PRN (09:11)
[2019-08-30] MEDS ORDERED: DINOPROSTONE 10 MG VAGINAL INSERT.SR PV PRN (16:22)
[2019-08-30] MEDS ORDERED: DINOPROSTONE 10 MG VAGINAL INSERT.SR ONE (18:12)
[2019-08-31] MEDS ORDERED: ACETAMINOPHEN 325 MG TABLET ONE (09:00)
[2019-08-31] MEDS ORDERED: ACETAMINOPHEN 325 MG TABLET PO ONE (09:23)
[2019-08-31] MEDS ORDERED: PENICILLIN G-K 5 MILLION UNIT VIAL ONE ×4 (11:23→23:16)
[2019-08-31] MEDS ORDERED: OXYTOCIN/NORMAL SALINE 0 UNIT/0 ML RTUINJ ONE (11:23)
[2019-08-31] MEDS ORDERED: OXYTOCIN/NORMAL SALINE 20 UNIT/1,000 ML RTUINJ ONE (11:37)
[2019-08-31] MEDS ORDERED: PENICILLIN G POTASSIUM 5,000,000 UNIT in DEXTROSE 5%-WATER 100 ML IV ONE (12:18)
[2019-08-31] MEDS: PENICILLIN G POTASSIUM 2,500,000 UNIT in DEXTROSE 5%-WATER 50 ML IV SCH ×3 (15:21→23:42)
[2019-08-31] MEDS ORDERED: EPHEDRINE SULFATE INJ 50 MG/1 ML AMPULE ONE ×2 (15:36→21:18)
[2019-08-31] MEDS ORDERED: BUPIVACAINE HCL 0.25 % INJ/PF (2.5 MG/1 ML) 30 ML VIAL ONE ×2 (15:36→21:18)
[2019-08-31] MEDS ORDERED: FENTANYL/BUPIVACAINE/NS/PF 0 MCG/0 ML RTUINJ EPI ONE (15:36)
[2019-08-31] MEDS ORDERED: NALBUPHINE HCL INJ 10 MG/1 ML AMPULE ONE (20:00)
[2019-08-31] MEDS ORDERED: NALBUPHINE HCL INJ 10 MG/1 ML AMPULE INJ ONE (20:45)
[2019-08-31] MEDS ORDERED: FENTANYL/BUPIVACAINE/NS/PF 300 MCG/150 ML RTUINJ EPI ONE (21:18)
[2019-09-01] MEDS ORDERED: PROMETHAZINE HCL 25 MG TABLET PO PRN (02:53)
[2019-09-01] MEDS ORDERED: PROMETHAZINE HCL INJ 25 MG/1 ML VIAL IV PRN (02:53)
[2019-09-01] MEDS ORDERED: ZOLPIDEM TARTRATE 5 MG TABLET PO PRN (02:53)
[2019-09-01] MEDS ORDERED: DIBUCAINE 1% OINTMENT 56 GM TP PRN (02:53)
[2019-09-01] MEDS ORDERED: GLYCERIN/WITCH HAZEL LEAF 1 EACH MED..WIPE TP PRN (02:53)
[2019-09-01] MEDS ORDERED: ACETAMINOPHEN 325 MG TABLET PO PRN (02:53)
[2019-09-01] MEDS ORDERED: MEASLES,MUMPS&RUBELLA VACC/PF 0.5 ML VIAL SUBCUT PRN (02:53)
[2019-09-01] MEDS ORDERED: NA PHOS,M-B/NA PHOS,DI-BA (ADULT) 133 ML ENEMA PR PRN (02:53)
[2019-09-01] MEDS ORDERED: DIPH/PERTUSS(ACELL)/TETANUS VAC/PF 0.5 ML SYR (>=10YO) IM PRN (02:53)
[2019-09-01] MEDS ORDERED: OXYTOCIN/NORMAL SALINE 20 UNIT/1,000 ML RTUINJ IV PRN (02:53)
[2019-09-01] MEDS ORDERED: ACETAMINOPHEN WITH CODEINE #3 TABLET PO PRN ×2 (02:53)
[2019-09-01] MEDS ORDERED: PROMETHAZINE HCL 25 MG SUPP.RECT PR PRN (02:53)
[2019-09-01] MEDS ORDERED: DIPHENHYDRAMINE HCL 25 MG CAPSULE PO PRN (02:53)
[2019-09-01] MEDS ORDERED: MISOPROSTOL 0.2 MG TABLET PR PRN (02:53)
[2019-09-01] MEDS ORDERED: MAGNESIUM HYDROXIDE SUSP 30 ML UDCUP PO PRN (02:53)
[2019-09-01] MEDS ORDERED: ACETAMINOPHEN 650 MG SUPP.RECT PR PRN (02:53)
[2019-09-01] MEDS ORDERED: PSEUDOEPHEDRINE HCL 30 MG TABLET PO PRN (02:53)
[2019-09-01] MEDS ORDERED: BENZOCAINE/MENTHOL AEROSOL SPRAY 56 ML TOP PRN (02:53)
--- NOTE | 2019-09-01 04:38 | Delivery Summary ---
Del Sum A-C Datetime Report Generated by CPN: 09/01/2019 04:38 DELIVERY PERSONNEL DELIVERY PERSONNEL: [id number] Delivery Doctor:: Evelyn Nelson MD Labor and Delivery Nurse:: Nancy López RNcrew person Nurse:: Karina Garcia RN Mortgage Counselor/PROCESS IMPROVEMENT ANALYST: Leann John, ST MATERNAL INFORMATION Delivery Anesthesia: Epidural Medications After Delivery: Pitocin Drip 20 Units/1000ml NSS; Cytotec 1000mcg Per Rectum/Vagina Delivery QBL: 100 Maternal Complications: None Provider Comments: VFI delivered in DANIEL presentation. No nuchal cord. Shoulders and body delivered without difficulty. cord doubly clamped and cut and to maternal abd. Placenta delivered intact spontaneously. FF at U then with mild atony resolved with pitocin and 1000mcg cytotec. No perineal lacerations. Mild abrasions on bilateral labia see above and hemostatic after silver nitrate. Mother and baby stable upon provider leaving the room. LABOR SUMMARY EDC: 08/28/2019 00:00 No. Babies in Womb: 1 Attempted: No Labor Anesthesia: Epidural LABOR INFORMATION Reason for Induction: Post Dates Onset of Labor: 09/01/2019 00:15 Complete Dilatation: 09/01/2019 02:00 Cervical Ripening Agents: Cervidil; [place] Balloon Oxytocin: N/A Group B Beta Strep: positive Antibiotics # of Doses: 4 Antibiotics Time of Last Dose: 0715 Name of Antibiotic Given: Penicillin Steroids Given: None Reason Steroids Not Administered: Not Applicable MEMBRANES Membranes Rupture Method: Artificial Rupture of Membranes: 08/31/2019 14:59 Length of Rupture (hr): 11.50 Amniotic Fluid Color: Clear Amniotic Fluid Amount: Small Amniotic Fluid Odor: None STAGES OF LABOR Stage 1 hr: 1 Stage 1 min: 45 Stage 2 hr: 0 Stage 2 min: 29 Stage 3 hr: 0 Stage 3 min: 3 Total Time in Labor hr: 2 Total Time in Labor min: 17 VAGINAL DELIVERY Episiotomy: None Laceration #1: Perineal Laceration Extension #1: N/A Laceration Repair: Not Applicable Laceration Repair Note: superficial abrasion hemostasis achieved with pressure and minimal silver nitrate application Sponge Count Correct: Yes Sharps Count Correct: Yes CSECTION DELIVERY Primary Indication: N/A Secondary Indication: N/A CSection Incidence: N/A Labor: N/A Elective: N/A CSection Incision: N/A BABY A INFORMATION Infant Delivery Date/Time: 09/01/2019 02:29 Method of Delivery: Vaginal Born in Route : No : N/A Forceps: N/A Vacuum Extraction: N/A Shoulder Dystocia : No PRESENTATION/POSITION BABY A Presentation: Cephalic Cephalic Presentation: Vertex Vertex Position: Right Occipital Anterior Breech Presentation: N/A PLACENTA INFORMATION BABY A Placenta Delivery Time : 09/01/2019 02:32 Placenta Method of Delivery: Spontaneous Placenta Status: Delivered SCORES BABY A Heart Rate 1 min: >100 bpm Resp Effort 1 min: Slow, Irregular Reflex Irritability 1 min: Cough or Sneeze or Pulls Away Muscle Tone 1 min: Active Motion Color 1 min: Body [place], Extremities Blue Resuscitation Effort 1 min: Tactile Stimulation SCORE 1 MIN: 8 Heart Rate 5 min: >100 bpm Resp Effort 5 min: [place] Reflex Irritability 5 min: Cough or Sneeze or Pulls Away Muscle Tone 5 min: Active Motion Color 5 min: Body [place], Extremities Blue Resuscitation Effort 5 min: Tactile Stimulation SCORE 5 MIN: 9 Resuscitation Effort 10 min: N/A INFORMATION BABY A Gestational Age at Delivery: 40.4 Gestational Status: Full Term- 39- 40.6 Weeks Infant Outcome : Liveborn Condition : Stable Infant Sex: Female IDENTIFICATION BABY A Infant Verification Date/Time: 09/01/2019 03:09 ID Band Number: [id number] Mother's Name Verified: Yes RN Verifying Infant: CEstefanía Jones ROMIE, Evans Garcia RN WEIGHT/LENGTH BABY A Birthweight (gm): 2900 Weight (lb): 6 Weight (oz): 6 Length (in): 19.00 Length (cm): 48.26 CORD INFORMATION BABY A No. Cord Vessels: 3 Nuchal Cord : N/A Cord Blood Taken: Yes-For Storage (Mom's Blood type +) Infant Suction: Mouth ASSESSMENT BABY A Skin to Skin: Yes Skin to Skin Time (min): 120 BABY B INFORMATION : N/A SIGNATURES Signature: with User ID: [email or web address]
--- NOTE | 2019-09-01 04:38 | Warning Signs in Babies ---
VOD Warning Signs Datetime Report Generated by [facility]: 09/01/2019 04:38 VOD#608 -Warning Signs in Babies: Viewed with Parent(s)/Family (05/23/2019 12:09:Nancy López RN)
[2019-09-01] MEDS: IBUPROFEN 800 MG TABLET PO SCH ×3 (05:17→22:30)
--- NOTE | 2019-09-01 09:31 | PDOC PROGRESS REPORT ---
Subjective-OB Progress Note for:: 09/01/19 Physical Exam (OB) Vital Signs: Temp Pulse Resp BP Pulse Ox 98.5 F 64 12 116/65 98 09/01/19 07:53 09/01/19 07:53 09/01/19 07:53 09/01/19 07:53 09/01/19 07:53 Intake & Output 08/31/19 09/01/19 09/02/19 06:59 06:59 06:59 Output Total 0 Balance 0 - General General Appearance: Sleeping/easily aroused In distress: None - PIH/Pre-Eclampsia Clonus: Negative Headache: Absent Epigastric Pain: No Visual Changes: No - Lochia Lochia Amount: Small 10-25 ml Lochia Color: Rubra/Red - Abdomen Description: Soft, Round Hernia Present: No Bowel Sounds: Normoactive Flatus Presence: Present Stool: No Fundal Description: Firm, Midline Fundal Height: u/u - u/2 Objective-Diagnostic Laboratory: 08/29/19 19:02
[2019-09-01] MEDS: FAMOTIDINE 20 MG TABLET PO SCH ×2 (09:41→22:30)
[2019-09-01] MEDS: FERROUS SULFATE 325 MG TABLET PO SCH ×2 (09:41→17:28)
[2019-09-01] MEDS: SENNOSIDES/DOCUSATE 8.6-50 MG 1 EACH TABLET PO SCH (09:41)
[2019-09-01] MEDS: PRENATAL VITAMIN W DHA CAPSULE PO SCH (09:41)
[2019-09-01] MEDS: DOCUSATE SODIUM 100 MG CAPSULE PO SCH ×2 (09:41→17:28)
[2019-09-01] MEDS ORDERED: INFLUENZA QUAD (6MOS+) 2019-20 VAC 0.5 ML SYR IM ONE (10:00)
[2019-09-02] MEDS: IBUPROFEN 800 MG TABLET PO SCH ×3 (05:52→22:27)
[2019-09-02 08:57] LABS: HEMATOCRIT 29.7 % (36.0-47.0); MEAN CORPUSCULAR HEMOGLOBIN 28.9 pg (27.0-33.4); MEAN CORPUSCULAR HGB CONC 33.6 g/dL (32.0-36.0); MEAN CORPUSCULAR VOLUME 86 fl (80-97); PLATELET COUNT 220 10^3/uL (150-450); RED BLOOD COUNT 3.46 10^6/uL (3.72-5.28); RED CELL DISTRIBUTION WIDTH 14.1 % (11.5-14.0); WHITE BLOOD COUNT 10.1 10^3/uL (4.0-10.5)
[2019-09-02] MEDS: FERROUS SULFATE 325 MG TABLET PO SCH ×2 (10:17→18:18)
[2019-09-02] MEDS: FAMOTIDINE 20 MG TABLET PO SCH ×2 (10:17→22:28)
[2019-09-02] MEDS: SENNOSIDES/DOCUSATE 8.6-50 MG 1 EACH TABLET PO SCH (10:17)
[2019-09-02] MEDS: DOCUSATE SODIUM 100 MG CAPSULE PO SCH ×2 (10:17→18:18)
[2019-09-02] MEDS: PRENATAL VITAMIN W DHA CAPSULE PO SCH (10:17)
--- NOTE | 2019-09-02 17:24 | PDOC PROGRESS REPORT ---
Subjective-OB Progress Note for:: 09/02/19 Subjective: reports bleeding slowing, pain controlled with current meds, denies needs Physical Exam (OB) Vital Signs: Temp Pulse Resp BP Pulse Ox 97.8 F 69 16 132/71 H 100 09/02/19 09:16 09/02/19 09:16 09/02/19 09:16 09/02/19 09:16 09/02/19 09:16 Intake & Output 09/01/19 09/02/19 09/03/19 06:59 06:59 06:59 Intake Total 480 Output Total 0 Balance 0 480 - Abdomen Description: Soft Hernia Present: No Fundal Description: Firm, Midline Fundal Height: u/u - u/2 - Abdominal Distension: No distension Tenderness: Nontender - Extremities Lower extremities: Aramis's sign - neg Calf: Normal, Nontender Objective-Diagnostic Laboratory: 09/02/19 07:47 09/02/19 07:47 WBC 10.1 RBC 3.46 L Hgb 10.0 L Hct 29.7 L MCV 86 MCH 28.9 MCHC 33.6 RDW 14.1 H Plt Count 220 Assessment and Plan(PN) - Time Spent with Patient Time with patient: Less than 15 minutes Medications reviewed and adjusted accordingly: Yes - Disposition Anticipated Discharge: Home Within: within 24 hours
[2019-09-03] MEDS: IBUPROFEN 800 MG TABLET PO SCH ×2 (05:37→13:43)
[2019-09-03 09:51] VITALS: BP 132/71
--- NOTE | 2019-09-03 10:21 | PDOC DISCHARGE SUMMARY ---
Impression - Admit/DC Date/PCP Admission Date/Primary Care Provider: 08/29/19 18:22 OLIVIA CELESTIN, DO Discharge Date: 09/03/19 - PP Day #2, doing well, A+, rubella Immune, . 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 - Discharge Diagnosis (1) Anxiety Is this a current diagnosis for this admission?: Yes (2) Encounter for induction of labor Is this a current diagnosis for this admission?: Yes (3) growth abnormality Is this a current diagnosis for this admission?: Yes (4) History of suicide attempt Is this a current diagnosis for this admission?: Yes (5) Positive GBS test Is this a current diagnosis for this admission?: Yes (6) Vaginal delivery Is this a current diagnosis for this admission?: Yes (7) Gestational hypertension affecting first Is this a current diagnosis for this admission?: Yes - Additional Information Resuscitation Status: Full Code Discharge Diet: As Tolerated, Regular Discharge Activity: Activity As Tolerated, No Lifting Over 10 Pounds, Pelvic Rest Referrals: [facility] [Provider Group] Prescriptions: Ibuprofen [Motrin 800 mg Tablet] 800 mg PO Q8 #60 tablet Home Medications: Vit,Calc76/Iron/Folic [Prenatabs Rx Tablet] 1 each PO DAILY 05/23/19 Ibuprofen [Motrin 800 mg Tablet] 800 mg PO Q8 #60 tablet 09/03/19 HPI Reason(s) for Admission: Induction of Labor, Obstetric Complications, PIH Procedures: NST, Ultrasound Intrapartum Procedure(s): Spontaneous Vaginal Delivery Hospital Course Hospital Course: routine Results Laboratory Results: WBC 10.1 10^3/uL (4.0-10.5) 09/02/19 07:47 RBC 3.46 10^6/uL (3.72-5.28) L 09/02/19 07:47 Hgb 10.0 g/dL (12.0-15.5) L 09/02/19 07:47 Hct 29.7 % (36.0-47.0) L 09/02/19 07:47 MCV 86 fl (80-97) 09/02/19 07:47 MCH 28.9 pg (27.0-33.4) 09/02/19 07:47 MCHC 33.6 g/dL (32.0-36.0) 09/02/19 07:47 RDW 14.1 % (11.5-14.0) H 09/02/19 07:47 Plt Count 220 10^3/uL (150-450) 09/02/19 07:47 Lymph % (Auto) 13.5 % (13-45) 08/29/19 19:02 [place] % (Auto) 4.6 % (3-13) 08/29/19 19:02 Eos % (Auto) 0.3 % (0-6) 08/29/19 19:02 Baso % (Auto) 0.3 % (0-2) 08/29/19 19:02 Absolute Neuts (auto) 9.4 10^3/uL (1.7-8.2) H 08/29/19 19:02 Absolute Lymphs (auto) 1.6 10^3/uL (0.5-4.7) 08/29/19 19:02 Absolute Monos (auto) 0.5 10^3/uL (0.1-1.4) 08/29/19 19:02 Absolute Eos (auto) 0.0 10^3/uL (0.0-0.6) 08/29/19 19:02 Absolute Basos (auto) 0.0 10^3/uL (0.0-0.2) 08/29/19 19:02 Seg Neutrophils % 81.3 % (42-78) H 08/29/19 19:02 Urine Color YELLOW 08/29/19 18:49 Urine Appearance TURBID 08/29/19 18:49 Urine pH 6.0 (5.0-9.0) 08/29/19 18:49 Ur Specific [place] 1.027 08/29/19 18:49 Urine Protein 30 mg/dL (NEGATIVE) H 08/29/19 18:49 Urine Glucose (UA) NEGATIVE mg/dL (NEGATIVE) 08/29/19 18:49 Urine Ketones NEGATIVE mg/dL (NEGATIVE) 08/29/19 18:49 Urine Blood NEGATIVE (NEGATIVE) 08/29/19 18:49 Urine Nitrite NEGATIVE (NEGATIVE) 08/29/19 18:49 Urine Bilirubin NEGATIVE (NEGATIVE) 08/29/19 18:49 Urine Urobilinogen NEGATIVE mg/dL (<2.0) 08/29/19 18:49 Ur Leukocyte Esterase NEGATIVE (NEGATIVE) 08/29/19 18:49 Urine Ascorbic Acid NEGATIVE (NEGATIVE) 08/29/19 18:49 Urine Opiates Screen NEGATIVE 08/29/19 18:49 Urine Methadone Screen NEGATIVE 08/29/19 18:49 Ur Barbiturates Screen NEGATIVE 08/29/19 18:49 Ur Phencyclidine Scrn NEGATIVE 08/29/19 18:49 Ur Amphetamines Screen NEGATIVE 08/29/19 18:49 U Benzodiazepines Scrn NEGATIVE 08/29/19 18:49 Urine Cocaine Screen NEGATIVE 08/29/19 18:49 U Marijuana (THC) Screen NEGATIVE 08/29/19 18:49 RPR NONREACTIVE (NONREACTIVE) 08/29/19 19:02 Blood Type A POSITIVE 08/29/19 19:02 Antibody Screen NEGATIVE 08/29/19 19:02 Plan Health Concerns: watch for PP depression and make sure BP returns to normal Plan of Treatment: d/c to home, pt to f/u in one week for a BP check
[2019-09-03] MEDS: SENNOSIDES/DOCUSATE 8.6-50 MG 1 EACH TABLET PO SCH (10:27)
[2019-09-03] MEDS: FAMOTIDINE 20 MG TABLET PO SCH (10:27)
[2019-09-03] MEDS: DOCUSATE SODIUM 100 MG CAPSULE PO SCH (10:28)
[2019-09-03] MEDS: PRENATAL VITAMIN W DHA CAPSULE PO SCH (10:28)
[2019-09-03] MEDS: FERROUS SULFATE 325 MG TABLET PO SCH (10:28)
== END 2019-09-03 14:00 | disposition home or self-care (01) | DRG 807 ==
LOC: LR 18:22 → 2S 09-01 04:50
PROVIDERS: ADMIT Student in an Organized Health Care Education/Training Program; ATTEND Student in an Organized Health Care Education/Training Program
PROC: 10E0XZZ Delivery of Products of Conception, External Approach (ICD-10-PCS; principal; 2019-09-01)
PROC: 3E0234Z Introduction of Serum, Toxoid and Vaccine into Muscle, Percutaneous Approach (ICD-10-PCS; 2019-09-03)
PROC: 3E0234Z Introduction of Serum, Toxoid and Vaccine into Muscle, Percutaneous Approach (ICD-10-PCS; 2019-09-03)
DX: O48.0 Post-term pregnancy (principal); Z37.0 Single live birth; O36.5930 Maternal care for other known or suspected poor fetal growth, third trimester, not applicable or unspecified; O99.824 Streptococcus B carrier state complicating childbirth; O99.344 Other mental disorders complicating childbirth; F41.9 Anxiety disorder, unspecified; O99.334 Smoking (tobacco) complicating childbirth; F17.210 Nicotine dependence, cigarettes, uncomplicated; Z3A.40 40 weeks gestation of pregnancy; Z23 Encounter for immunization
CPT/HCPCS: 36415; 59025; 80307; 81005; 85025; 85027; 86592; 86850; 86900; 86901; 90686; 90715; 94760; J2300; J2540; J2590; J3010; J3490

== ENCOUNTER 2020-06-15 09:29 | Emergency (ER) | payer MEDICAID ==
[2020-06-15 09:40] VITALS: BP 127/66
== END 2020-06-15 10:37 | disposition left against medical advice (07) ==
LOC: ER 09:29
DX: Z53.21 Procedure and treatment not carried out due to patient leaving prior to being seen by health care provider (principal); R10.9 Unspecified abdominal pain

== ENCOUNTER 2020-09-28 10:04 | Emergency (ER) | payer MEDICAID ==
[2020-09-28 10:13] VITALS: BP 123/61
--- NOTE | 2020-09-28 10:37 | ER Document Report ---
HPI - HPI Patient complains to provider of: bilateral ear pain Time Seen by Provider: 09/28/20 10:25 Context: 24-year-old female with no previous medical problems presents to the emergency room complaining of bilateral ear pain. States she tried cleaning 2 days ago wi th a Q-tip and now she cannot hear out of the right ear and is painful. Denies any recent swimming or flying. States she tried dyen-skc-gtucvki eardrops from the pharmacy without relief. Denies any chance of . Associated Symptoms: None Exacerbated by: Denies Relieved by: Denies Similar symptoms previously: No - ROS Systems Reviewed and Negative: Yes All other systems reviewed and negative - CONSTITUTIONAL Constitutional: DENIES: Fever - EENT EENT: REPORTS: Ear Pain. DENIES: Nasal Drainage-Clear - RESPIRATORY Respiratory: DENIES: Trouble Breathing, Coughing - REPRODUCTIVE Reproductive: DENIES: : - DERM Skin Color: Normal Skin Problems: None Past Medical History - General Information source: Patient - Social History Smoking Status: Never Smoker Frequency of alcohol use: None Drug Abuse: None Family History: Reviewed & Not Pertinent Renal/ Medical History: Denies: Hx Peritoneal Dialysis Psychiatric Medical History: Reports: Hx Depression Past Surgical History: Reports: Hx Gynecologic Surgery - ovarian cyst removal, Hx Tonsillectomy Vertical Provider Document - CONSTITUTIONAL Agree With Documented VS: Yes Exam Limitations: No Limitations General Appearance: Mild Distress - INFECTION CONTROL TRAVEL OUTSIDE OF THE [place] IN LAST 30 DAYS: No - HEENT HEENT: Atraumatic, Normocephalic, Tympanic Membrane Red, Tympanic Membrane Bulging - Bilateral outer ear canals with erythema and swelling. Bilateral tympanic membranes erythematous and bulging. Cerumen noted bilaterally to both ears but still able to visualize the tympanic membrane.. negative: Pharyngeal Exudate, Pharyngeal Tenderness, Pharyngeal Erythema - NECK Neck: Normal Inspection, Supple, Thyroid Normal - RESPIRATORY Respiratory: Breath Sounds Normal, No Respiratory Distress - CARDIOVASCULAR Cardiovascular: Regular Rate, Regular Rhythm, No Murmur - MUSCULOSKELETAL/EXTREMETIES Musculoskeletal/Extremeties: FROM - NEURO Level of Consciousness: Awake, Alert, Appropriate Motor/Sensory: No Motor Deficit, No Sensory Deficit - DERM Integumentary: Warm, Dry, No Rash Course - Re-evaluation Re-evalutation: 09/28/20 10:31 There is a moderate amount of erythema and swelling noted to the bilateral outer ear canals. There is also fair amount of cerumen noted bilaterally. Counseled the patient due to the swelling and infection in her ears it would be difficult to try to clean her ears out at this time. She was counseled to use antibiotic eardrops, oral antibiotics, and Debrox as directed. Can take Tylenol and or Motrin as needed for pain. Outpatient follow-up with ENT if not improving in 2 to 3 days. On-call physician was provided. Patient was given strict return to the emergency room guidelines. Return for any new or worsening symptoms. All questions were answered. Patient verbalized understanding and agrees with plan of care. - Vital Signs Vital signs: Temp Pulse Resp BP Pulse Ox 98.3 F 79 16 123/61 97 09/28/20 10:11 09/28/20 10:11 09/28/20 10:11 09/28/20 10:11 09/28/20 10:11 Discharge - Discharge Clinical Impression: Bilateral impacted cerumen Bilateral otitis media Qualifiers: Otitis media type: unspecified Qualified Code(s): H66.93 - Otitis media, unspecified, bilateral Bilateral otitis externa Qualifiers: Otitis externa type: unspecified type Chronicity: acute Qualified Code(s): H60.503 - Unspecified acute noninfective otitis externa, bilateral Condition: Stable Disposition: HOME, SELF-CARE Instructions: Cerumen Impaction ([facility]), Use of Ear Drops ([facility]), Otitis Externa ([facility]), Otitis Media ([facility]) Additional Instructions: Do not use Q-tips in your ear canals. Use Debrox as instructed. Take antibiotics and use antibiotic eardrops as prescribed. Follow-up with ENT if not improving in 2 to 3 days. Return to the emergency room for any new or worsening symptoms. Prescriptions: Amoxicillin 1 tab PO TID #30 tab Neomy Sulf/Polymyx B Sulf/Hc [Cortisporin Otic Susp] 4 drop BTH_EAR TID 7 Days #1 bottle Referrals: ARELI ELLIS MD [ACTIVE STAFF] - Follow up as needed
== END 2020-09-28 10:38 | disposition home or self-care (01) ==
LOC: ER 10:04
DX: H66.93 Otitis media, unspecified, bilateral (principal); H60.503 Unspecified acute noninfective otitis externa, bilateral; H61.23 Impacted cerumen, bilateral
CPT/HCPCS: 99283